=== PATIENT | male | born 1935 | race American Indian/Alaskan Native ===

== ENCOUNTER 2017-07-25 04:24 | Emergency (ER) | payer MEDICARE, OTHER ==
[2017-07-25 05:45] LABS: Hematocrit 46.7 % (35.5-45.6); Hemoglobin 15.3 gm/dl (11.8-15.2); Mean Corpuscular HGB Conc 33 % (32-34); Mean Corpuscular Hemoglobin 28 pg (28-32); Mean Corpuscular Volume 86 fl (84-94); Platelet Count 168 K/mm3 (140-440); Red Blood Count 5.42 M/mm3 (3.65-5.03); Red Cell Distribution Width 13.9 % (13.2-15.2)
[2017-07-25 05:54] LABS: BUN/Creatinine Ratio 15; Blood Urea Nitrogen 15 mg/dL (9-20); Calcium 8.7 mg/dL (8.4-10.2); Hemolysis Index 8
[2017-07-25 06:26] LABS: Band Neutrophils # (Manual) 0.3 K/mm3; Basophils % (Manual) 0 % (0.0-1.8); Eosinophils % (Manual) 0 % (0.0-4.3); Total Cells Counted 100
[2017-07-25 06:29] LABS: Platelet Estimate Consistent w Auto
--- NOTE | 2017-07-25 09:48 | Emergency Department Report ---
ED General Adult HPI - General Chief complaint: Urogenital-Male Stated complaint: BLOOD IN URINE Time Seen by Provider: 07/25/17 09:21 Source: patient Mode of arrival: Ambulatory Limitations: No Limitations - History of Present Illness Initial comments: Patient states that he had a Nascimento placed approximately one month ago when he had apparent bladder outlet obstruction and possibly a UTI. This was done at the [facility]. He states he has a follow-up appointment September 07. He states at the same time the Nascimento catheter was supposed to be removed after one month. He has an appointment to see Dr. Cortes in his office tomorrow for evaluation. However he decided to come to the emergency room this weekend because he noted that he had recurrent hematuria. He has had this several times in the past. He is status post TURP about 5 years ago. He states that his biopsy was negative for cancer. He states that since he had the biopsy he has had recurrent hematuria. He denies any recent fever or chills. He does not complain of any significant abdominal or back pain. -: week(s), month(s) Quality: other (occasional cramping only) Consistency: now resolved Improves with: none Worsens with: none Associated Symptoms: denies other symptoms Treatments Prior to Arrival: other (Nascimento catheter) - Related Data Home Medications Medication Instructions Recorded Confirmed Last Taken Acyclovir 800 mg PO BID 07/25/17 07/25/17 Unknown Aspirin BABY CHEW TAB 1 tab PO DAILY 07/25/17 07/25/17 Unknown AtorvaSTATin 40 mg PO DAILY 07/25/17 07/25/17 Unknown Cyanocobalamin (Vitamin B-12) 1,000 mcg PO DAILY 07/25/17 07/25/17 Unknown Finasteride 5 mg PO DAILY 07/25/17 07/25/17 Unknown ISOSORBIDE MONOnitrate 30 mg PO DAILY 07/25/17 07/25/17 Unknown Lisinopril 40 mg PO DAILY 07/25/17 07/25/17 Unknown Metoprolol Tartrate 75 mg PO BID 07/25/17 07/25/17 Unknown Oxybutynin 5 mg PO TID 07/25/17 07/25/17 Unknown Tamsulosin 0.4 mg PO DAILY 07/25/17 07/25/17 Unknown Previous Rx's Medication Instructions Recorded Last Taken Type Cefuroxime [Ceftin] 250 mg PO Q12H #14 tablet 07/25/17 Unknown Rx Allergies Allergy/AdvReac Type Severity Reaction Status Date / Time Sulfa (Sulfonamide Allergy Hives Verified 07/25/17 04:42 Antibiotics) ED Review of Systems ROS: Stated complaint: BLOOD IN URINE Other details as noted in HPI Constitutional: denies: chills, fever Eyes: denies: eye pain, eye discharge, vision change ENT: denies: ear pain, throat pain Respiratory: denies: cough, shortness of breath, wheezing Cardiovascular: denies: chest pain, palpitations Endocrine: no symptoms reported Gastrointestinal: denies: abdominal pain, nausea, diarrhea Genitourinary: as per HPI, hematuria. denies: urgency, dysuria Musculoskeletal: denies: back pain, joint swelling, arthralgia Skin: denies: rash, lesions Neurological: denies: headache, weakness, paresthesias Psychiatric: denies: anxiety, depression Hematological/Lymphatic: denies: easy bleeding, easy bruising ED Past Medical Hx - Past Medical History Hx Hypertension: Yes Hx Heart Attack/AMI: Yes (CAD) Additional medical history: Herpes, Elevated cholesterol, BPH, - Surgical History Additional Surgical History: Prostate Surgery, UTI - Social History Smoking Status: Never Smoker Substance Use Type: None - Medications Home Medications: Home Medications Medication Instructions Recorded Confirmed Last Taken Type Acyclovir 800 mg PO BID 07/25/17 07/25/17 Unknown History Aspirin BABY CHEW TAB 1 tab PO DAILY 07/25/17 07/25/17 Unknown History AtorvaSTATin 40 mg PO DAILY 07/25/17 07/25/17 Unknown History Cefuroxime [Ceftin] 250 mg PO Q12H #14 tablet 07/25/17 Unknown Rx Cyanocobalamin (Vitamin B-12) 1,000 mcg PO DAILY 07/25/17 07/25/17 Unknown History Finasteride 5 mg PO DAILY 07/25/17 07/25/17 Unknown History ISOSORBIDE MONOnitrate 30 mg PO DAILY 07/25/17 07/25/17 Unknown History Lisinopril 40 mg PO DAILY 07/25/17 07/25/17 Unknown History Metoprolol Tartrate 75 mg PO BID 07/25/17 07/25/17 Unknown History Oxybutynin 5 mg PO TID 07/25/17 07/25/17 Unknown History Tamsulosin 0.4 mg PO DAILY 07/25/17 07/25/17 Unknown History ED Physical Exam - General Limitations: No Limitations General appearance: alert, in no apparent distress - Head Head exam: Present: atraumatic, normocephalic - Eye Eye exam: Present: normal appearance. Absent: scleral icterus - ENT ENT exam: Present: mucous membranes moist - Neck Neck exam: Present: normal inspection - Respiratory Respiratory exam: Present: normal lung sounds bilaterally. Absent: respiratory distress - Cardiovascular Cardiovascular Exam: Present: regular rate, normal rhythm. Absent: systolic murmur, diastolic murmur, rubs, gallop - GI/Abdominal GI/Abdominal exam: Present: soft, normal bowel sounds. Absent: distended, tenderness, guarding, rebound, rigid - Rectal Rectal exam: Present: deferred - Extremities Exam Extremities exam: Present: normal inspection - Back Exam Back exam: Present: normal inspection - Neurological Exam Neurological exam: Present: alert, oriented X3, CN II-XII intact. Absent: motor sensory deficit - Psychiatric Psychiatric exam: Present: normal affect, normal mood - Skin Skin exam: Present: warm, dry, intact, normal color. Absent: rash ED Course Vital Signs 07/25/17 07/25/17 07/25/17 04:29 08:48 08:59 Temperature 97.4 F L 98.1 F Pulse Rate 97 H 94 H Respiratory 18 18 Rate Blood Pressure 164/95 Blood Pressure 142/99 [Left] O2 Sat by Pulse 97 96 99 Oximetry 07/25/17 07/25/17 07/25/17 09:00 09:15 09:30 Temperature Pulse Rate 92 H 89 87 Respiratory 18 21 17 Rate Blood Pressure 134/95 145/94 142/92 Blood Pressure [Left] O2 Sat by Pulse 99 91 Oximetry 07/25/17 07/25/17 09:45 10:35 Temperature Pulse Rate 90 Respiratory 18 Rate Blood Pressure 138/90 Blood Pressure [Left] O2 Sat by Pulse 93 100 Oximetry - Reevaluation(s) Reevaluation #1: Patient does have some dark blood in his urine. However his bladder is draining well. We will check his urinalysis. We will check a plain CT. I would be inclined to leave this Nascimento in since Dr. Cortes is seeing the patient in his office tomorrow. He can decide whether or not the Nascimento should remain. The CT we will probably just irrigate the bladder. 07/25/17 09:51 Reevaluation #2: The patient will be given a shot of Rocephin. The bladder will be irrigated. The patient will follow up with Dr. Cortes. A urine culture will be pending. He will be continued on Ceftin. 07/25/17 11:11 ED Medical Decision Making - Lab Data Result diagrams: 07/25/17 05:14 07/25/17 05:14 Laboratory Results - last 24 hr 07/25/17 07/25/17 05:14 05:14 WBC 4.7 RBC 5.42 H Hgb 15.3 H Hct 46.7 H MCV 86 MCH 28 MCHC 33 RDW 13.9 Plt Count 168 [place] % (Auto) Coat Room Attendant Add Manual Diff Complete Total Counted 100 Seg Neuts % (Manual) 59.0 Band Neutrophils % 6.0 Lymphocytes % (Manual) 17.0 Reactive Lymphs % (Man) 2.0 Monocytes % (Manual) 16.0 H Eosinophils % (Manual) 0 Basophils % (Manual) 0 Metamyelocytes % 0 Myelocytes % 0 Promyelocytes % 0 Blast Cells % 0 Nucleated RBC % Not Reportable Seg Neutrophils # Man 2.8 Band Neutrophils # 0.3 Lymphocytes # (Manual) 0.8 L Abs React Lymphs (Man) 0.1 Monocytes # (Manual) 0.8 Eosinophils # (Manual) 0.0 Basophils # (Manual) 0.0 Metamyelocytes # 0.0 Myelocytes # 0.0 Promyelocytes # 0.0 Blast Cells # 0.0 WBC Morphology Not Reportable Hypersegmented Neuts Not Reportable Hyposegmented Neuts Not Reportable Hypogranular Neuts Not Reportable Smudge Cells Not Reportable Toxic Granulation Not Reportable Toxic Vacuolation Not Reportable Dohle Bodies Not Reportable Pelger-Huet Anomaly Not Reportable Mireya Rods Not Reportable Platelet Estimate Consistent w auto Clumped Platelets Not Reportable Plt Clumps, EDTA Not Reportable Large Platelets Not Reportable Giant Platelets Not Reportable Platelet Satelliting Not Reportable Plt Morphology Comment Not Reportable RBC Morphology Not Reportable Dimorphic RBCs Not Reportable Polychromasia Not Reportable Hypochromasia Not Reportable Poikilocytosis Not Reportable Anisocytosis Not Reportable Microcytosis Not Reportable Macrocytosis Not Reportable Spherocytes Not Reportable Pappenheimer Bodies Not Reportable Sickle Cells Not Reportable Target Cells Not Reportable Tear Drop Cells Not Reportable Ovalocytes Not Reportable Helmet Cells Not Reportable [place] Bodies Not Reportable [place] Rings Not Reportable [place]h Cells Not Reportable Bite Cells Not Reportable Crenated Cell Not Reportable Elliptocytes Not Reportable Acanthocytes (Spur) Not Reportable Rouleaux Not Reportable Hemoglobin C Crystals Not Reportable Schistocytes Not Reportable Malaria parasites Not Reportable Patricio Bodies Not Reportable Hem Pathologist Commnt No Sodium 136 L Potassium 3.9 Chloride 95.0 L Carbon Dioxide 23 Anion Gap 22 BUN 15 Creatinine 1.0 Estimated GFR > 60 BUN/Creatinine Ratio 15 Glucose 102 H Calcium 8.7 - Radiology Data Radiology results: report reviewed interpreted by me: Patient with bladder clot possibly stone possibly cystitis. Large gallstone. Incidental nephrolithiasis 2 mm. Critical care attestation.: If time is entered above; I have spent that time in minutes in the direct care of this critically ill patient, excluding procedure time. ED Disposition Clinical Impression: Hemorrhagic cystitis Disposition: DC-01 TO HOME OR SELFCARE Is pt being admited?: No Does the pt Need Aspirin: No Condition: Stable Instructions: Urinary Tract Infection in Men (ED), Acute Hematuria (ED) Additional Instructions: See Dr. Cortes tomorrow. Return any acute change such as fever or chills vomiting or you feel ill tonight. A urine culture is pending and can be checked by Dr. Cortes. Rx as directed you may begin the antibiotic tomorrow. Prescriptions: Cefuroxime [Ceftin] 250 mg PO Q12H #14 tablet Referrals: SHEN NGO MD [Primary Care Provider] - 3-5 Days VINICIO CORTES MD [Staff Physician] - 24 Hours Time of Disposition: 11:13
[2017-07-25 10:04] LABS: Bacteria,Urine 3+ /HPF (Negative); Mucus,Urine FEW /HPF
[2017-07-25 10:09] LABS: Bilirubin,Urine NEG (Negative); Blood,Urine LG (Negative); Color,Urine Red (Yellow); Nitrite,Urine NEG (Negative); Urobilinogen,Urine < 2.0 mg/dL (<2.0)
[2017-07-25 10:35] VITALS: BP 138/90
--- NOTE | 2017-07-25 10:35 | Cat Scan Report ---
CT ABDOMEN PELVIS WITHOUT CONTRAST: HISTORY: Hematuria. COMPARISON: none. TECHNIQUE: Helical CT in 1.25mm intervals without IV contrast. Sagittal and coronal reconstructions. FINDINGS: Lung bases: Normal. Liver: Normal. Biliary system: There is a large, solitary gallstone measuring 2.0 cm. No biliary dilatation or inflammation. Pancreas: Normal. Spleen: Normal. Kidneys/ureters/bladder: Both kidneys are normal size, contour and position. A 2 mm calyceal stone is identified in the mid right kidney. No additional nephrolithiasis. No cystic disease or obvious mass. The ureters are normal course and caliber. No ureteral stones are identified. The bladder is partially distended and contains a Nascimento catheter. There is hyperdense material within the left side of the bladder consistent with blood. There is suggestion of mild diffuse bladder wall thickening but no focal mass. The prostate gland is is unremarkable measuring 4.5 cm in diameter. Adrenal glands: Normal. Aorta: Mild diffuse calcifications without aneurysm. Intestines: This unremarkable but no oral contrast was administered. Appendix: Normal. Pelvic viscera: Normal. Ascites: None. Adenopathy: None. Musculoskeletal: Moderate thoracolumbar spondylosis. No displaced fracture or suspicious bony lesion. IMPRESSION: There is hyperdense material in the bladder consistent with blood. Mild diffuse bladder wall thickening could represent a cystitis or trabeculation the bladder wall. No discrete bladder mass. A 2 mm nonobstructing calyceal stone is noted in the mid right kidney. Large gallstone. Thoracolumbar spondylosis
[2017-07-25] MEDS ORDERED: ROCEPHIN IM ONE (11:10)
[2017-07-25] MEDS ORDERED: XYLOCAINE 1% MPF 5 mL INFILTRATI ONE (11:10)
== END 2017-07-25 12:17 | disposition home or self-care (01) ==
LOC: ED 04:24
DX: N30.80 Other cystitis without hematuria (principal); Z79.82 Long term (current) use of aspirin; I25.2 Old myocardial infarction; Z88.2 Allergy status to sulfonamides; I10 Essential (primary) hypertension
CPT/HCPCS: 36415; 74176; 80048; 81001; 85007; 85025; 87076; 87086; 87186; 96372; 99284; J0696